=== PATIENT | female | born 1960 | race Two or more races ===

== ENCOUNTER 2024-06-07 09:36 | Outpatient (CLI) | payer OTHER ==
--- NOTE | 2024-06-07 21:43 | DEXA Report ---
PROCEDURE: Dexa Spine and/or Hip INDICATIONS: POST MENOPAUSAL TECHNIQUE: Dual energy x-ray absorptiometry (DXA) was performed on a DivX System. Regions measur ed are the AP Spine, femoral neck, and if needed forearm. COMPARISON: None FINDINGS: Lumbar Spine: Bone Mineral Density: 0.808 g/cm/cm,T score: -3.1. Osteoporosis Left Femoral Neck: Bone Mineral Density: 0.780 g/cm/cm, T score: -1.9. Left Hip: Bone Mineral Density: 0.825 g/cm/cm,T score: -1.5. Osteopenia (T score greater or equal to -1.0: NORMAL) (T score from -1.1 to -2.4: OSTEOPENIA) (T score less than or equal to -2.5 to: OSTEOPOROSIS) Impression: By WHO criteria, this patient has osteoporosis. Patients with diagnosis of osteoporosis or osteopenia should have regular bone mineral density assess ment. For those eligible for Medicare, routine testing is allowed once every 2 years. Testing frequ ency can be increased for patients who have rapidly progressing disease or for those who are receivin g medical therapy to restore bone mass. Reviewed by: Gautam Gimenez MD on 06/07/2024 9:41 PM PDT Approved by: Gautam Gimenez MD on 06/07/2024 9:41 PM PDT Station ID: [id number]
== END 2024-06-07 09:37 | disposition home or self-care (01) ==
LOC: DI 09:36
PROVIDERS: ATTEND Family Medicine
DX: M81.0 Age-related osteoporosis without current pathological fracture (principal); Z78.0 Asymptomatic menopausal state